=== PATIENT | male | born 1985 | race Caucasian/White ===

== ENCOUNTER 2017-09-30 12:34 | Emergency (ER) | payer SELFPAY ==
[~2017-09-30] VITALS: Ht 170.2 cm; Wt 65.8 kg
[~2017-09-30 12:34] MED LIST: SULF1TAB38 PO
--- OUTSIDE RECORDS SUMMARY | 2017-09-30 12:40 | XMS REPORT ---
Author Author INDIGO SALAZAR eClinicalWorks Address Unknown Phone Unavailable Care Team Providers Care Planting Machine Crewman Name Role Phone INDIGO SALAZAR CP Unavailable Allergies, Adverse Reactions, Alerts Substance Reaction Event Type N.K.D.A. 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 Assessment Dental caries K02.9 Active Medications Medication Code System Code Instructions Start Date End Date Status Dosage buspirone NDC 0 10 mg oral 2 times a day March 11, 2013 Oct 07, 2015 take 1 tablet Acyclovir [facility] [address]-15 400 MG Orally Sep 07, 2015 1 tablet tid x 5 days, then po bid Ibuprofen [facility] [address]-60 800 MG Orally every 6 hrs Sep 14, 2015Sep 1 tablet Procedures Procedure Coding System Code Date INTRAORL-PERIAPICAL 1 FILM 01941 CPT-4 D0220 Sep 14, 2015 INTRAORL-PERIAPICAL 1 FILM 21790 CPT-4 D0220 Sep 14, 2015 LTD ORAL EVALUATION - PROBLEM FOCUS CPT-4 D0140 Sep 14, 2015 EXTRAC ERUPTED TOOTH/EXPOSED ROOT CPT-4 D7140 Sep 14, 2015 EXTRAC ERUPTED TOOTH/EXPOSED ROOT CPT-4 D7140 Sep 14, 2015 Vital Signs Date/Time: Sep 14, 2015 Blood Pressure Diastolic 74 mmHg Blood Pressure Systolic 110 mmHg Height 67 in Results No Known Results Summary Purpose eClinicalWorks Submission
--- OUTSIDE RECORDS SUMMARY | 2017-09-30 12:41 | XMS REPORT ---
Author Author MAY LANDIS [facility] eClinicalWorks Address Unknown Phone Unavailable Care Team Providers Care Spring Repairer Helper Hand Name Role Phone MAY LANDIS Unavailable Allergies No Known Allergies Problems Problem Type Condition Code Onset Dates Condition Status Problem Polysubstance abuse F19.10 Active Assessment Chronic hepatitis C without hepatic coma B18.2 Active Problem Chronic hepatitis C without hepatic coma B18.2 Active Medications No Known Medications Results No Known Results Summary Purpose eClinicalWorks Submission
--- OUTSIDE RECORDS SUMMARY | 2017-09-30 12:41 | XMS REPORT ---
Author Author MAY LANDIS [facility] eClinicalWorks Address Unknown Phone Unavailable Care Team Providers Care Boiler Fitter Name Role Phone MAY LANDIS CP Unavailable Allergies No Known Allergies Problems Problem Type Condition Code Onset Dates Condition Status Problem Polysubstance abuse F19.10 Active Assessment Chronic hepatitis C without hepatic coma B18.2 Active Problem Chronic hepatitis C without hepatic coma B18.2 Active Medications No Known Medications Procedures Procedure Coding System Code Date HEP B SURFACE ANTIBODY CPT-4 42425 Oct 18, 2015 COMPLETE CBC W/AUTO DIFF WBC CPT-4 36559 Oct 18, 2015 THROMBOPLASTIN TIME, PARTIAL CPT-4 27464 Oct 18, 2015 COMPREHEN METABOLIC PANEL CPT-4 19311 Oct 18, 2015 PROTHROMBIN TIME CPT-4 13921 Oct 18, 2015 VENIPUNCT, ROUTINE* CPT-4 84944 Oct 18, 2015 No Charge CPT-4 69276 Oct 18, 2015 Results Name Result Date Reference Range Unit Abnormality Flag ROUTINE VENIPUNCTURE Summary Purpose eClinicalWorks Submission
--- OUTSIDE RECORDS SUMMARY | 2017-09-30 12:41 | XMS REPORT ---
Author Author MAY LANDIS [facility] eClinicalWorks Address Unknown Phone Unavailable Care Team Providers Care Cartridge Assembler Name Role Phone MAY LANDIS Unavailable Allergies No Known Allergies Problems Problem Type Condition Code Onset Dates Condition Status Problem Polysubstance abuse F19.10 Active Assessment Chronic hepatitis C without hepatic coma B18.2 Active Problem Chronic hepatitis C without hepatic coma B18.2 Active Medications No Known Medications Results No Known Results Summary Purpose eClinicalWorks Submission
--- OUTSIDE RECORDS SUMMARY | 2017-09-30 12:41 | XMS REPORT ---
Author Author INDIGO SALAZAR e[employer] Address Unknown Phone Unavailable Care Team Providers Care Quality Management Nurse Name Role Phone INDIGO SALAZAR CP Unavailable Allergies, Adverse Reactions, Alerts Substance Reaction Event Type N.K.D.A. 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 Medications Medication Code System Code Instructions Start Date End Date Status Dosage buspirone NDC 0 10 mg oral 2 times a day March 11, 2013 Oct 07, 2015 take 1 tablet Gabapentin NDC 0 not defined Acyclovir [facility] [address]-72 400 MG Orally Sep 07, 2015 1 tablet tid x 5 days, then po bid Procedures Procedure Coding System Code Date LTD ORAL EVALUATION - PROBLEM FOCUS CPT-4 D0140 Sep 21, 2015 Vital Signs Date/Time: Sep 21, 2015 Blood Pressure Diastolic 62 mmHg Blood Pressure Systolic 109 mmHg Height 67 in Results No Known Results Summary Purpose eClinicalWorks Submission
--- OUTSIDE RECORDS SUMMARY | 2017-09-30 12:41 | XMS REPORT ---
Author Author MAY LANDIS [facility] eClinicalWorks Address Unknown Phone Unavailable Care Team Providers Care Helper Animal Laboratory Name Role Phone MAY LANDIS Unavailable Allergies No Known Allergies Problems Problem Type Condition Code Onset Dates Condition Status Problem Polysubstance abuse F19.10 Active Problem Chronic hepatitis C without hepatic coma B18.2 Active Medications No Known Medications Results No Known Results Summary Purpose eClinicalWorks Submission
--- OUTSIDE RECORDS SUMMARY | 2017-09-30 12:41 | XMS REPORT ---
Author Author RAVI LIMA Organization eClinicalWorks Address Unknown Phone Unavailable Care Team Providers Care Water Inspector Name Role Phone RAVI LIMA CP Unavailable Allergies, Adverse Reactions, Alerts Substance Reaction Event Type N.K.D.A. 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 Assessment Dental caries K02.9 Active Medications Medication Code System Code Instructions Start Date End Date Status Dosage Amoxicillin [facility] [address]-00 500 MG Orally Every 6 hours Jul 05, 2015 Jul 15, 2015 1 capsule [place] [facility] [address]-58 5-325 MG Orally every 6 hrs Jul 05, 2015 Jul 09, 2015 1 tablet as needed Procedures Procedure Coding System Code Date INTRAORL-PERIAPICAL EA ADD FILM CPT-4 D0230 Jul 05, 2015 EXTRAC ERUPTED TOOTH/EXPOSED ROOT CPT-4 D7140 Jul 05, 2015 LTD ORAL EVALUATION - PROBLEM FOCUS CPT-4 D0140 Jul 05, 2015 EXTRAC ERUPTED TOOTH/EXPOSED ROOT CPT-4 D7140 Jul 05, 2015 Vital Signs Date/Time: Jul 05, 2015 Blood Pressure Diastolic 80 mmHg Blood Pressure Systolic 124 mmHg Results No Known Results Summary Purpose eClinicalWorks Submission
--- OUTSIDE RECORDS SUMMARY | 2017-09-30 12:41 | XMS REPORT ---
Author Author MAY LANDIS eClinicalWorks Address Unknown Phone Unavailable Care Team Providers Care Pulping Machine Operator Name Role Phone MAY LANDIS CP Unavailable Allergies, Adverse Reactions, Alerts Substance Reaction Event Type N.K.D.A. Info Not Available Non Drug Allergy Problems Problem Type Condition Code Onset Dates Condition Status Problem Polysubstance abuse F19.10 Active Assessment Chronic hepatitis C without hepatic coma B18.2 Active Problem Chronic hepatitis C without hepatic coma B18.2 Active Medications Medication Code System Code Instructions Start Date End Date Status Dosage Gabapentin [place] [address]-84 300 MG Orally 4 times a day 1 tablet buspirone NDC 0 10 mg oral two times a day & 2 tablets at bedtime March 11, 2013 Oct 07, 2015 take 1 tablet Procedures Procedure Coding System Code Date Office Visit, New Pt., Level 3 CPT-4 46858 Sep 30, 2015 DRUG SCREEN NON TLC DEVICES CPT-4 47658 Sep 30, 2015 Vital Signs Date/Time: Sep 30, 2015 Temperature 98.5 F Weight 143.9 lbs Height 67 in BMI 22.54 Index Blood Pressure Diastolic 68 mmHg Blood Pressure Systolic 126 mmHg Cardiac Monitoring Heart Rate 76 bpm Results Name Result Date Reference Range Unit Abnormality Flag URINE DRUG SCREEN (IN HOUSE) ----MDMA negative 20150930 ----TCA negative 20150930 ----BENZO negative 20150930 ----OPIATE negative 20150930 ----THC Positive 20150930 ----MTD negative 20150930 ----AMPH negative 20150930 ----BAR negative 20150930 ----PCP negative 20150930 ----MAMP negative 20150930 ----OXY negative 20150930 ----Lot # [id number] ----Exp date [id number] ----Control + 20150930 ----COCAINE negative 20150930 Summary Purpose eClinicalWorks Submission
--- OUTSIDE RECORDS SUMMARY | 2017-09-30 12:41 | XMS REPORT ---
Author Author CAROL ANN BLAKE [facility] eClinicalWorks Address Unknown Phone Unavailable Care Team Providers Care Casting Machine Adjuster Name Role Phone CAROL ANN BLAKE CP Unavailable Allergies, Adverse Reactions, Alerts Substance Reaction Event Type N.K.D.A. 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 Assessment Anxiety F41.9 Active Medications Medication Code System Code Instructions Start Date End Date Status Dosage Acyclovir NDC [address]-22 400 MG Orally Sep 07, 2015 1 tablet tid x 5 days, then po bid buspirone NDC 0 10 mg oral 2 times a day March 11, 2013 Oct 07, 2015 take 1 tablet Procedures Procedure Coding System Code Date Office Visit, Est Pt., Level 3 CPT-4 09786 Sep 07, 2015 Vital Signs Date/Time: Sep 07, 2015 Temperature 98.7 F Weight 131 lbs Height 67 in BMI 20.52 Index Blood Pressure Diastolic 68 mmHg Blood Pressure Systolic 122 mmHg Cardiac Monitoring Heart Rate 80 bpm Results No Known Results Summary Purpose eClinicalWorks Submission
[2017-09-30 16:32] LABS: BILIRUBIN,URINE NEGATIVE (NEGATIVE); CLARITY,URINE CLEAR; COLOR,URINE YELLOW; GLUCOSE, URINE (UA) NEGATIVE (NEGATIVE); KETONES,URINE NEGATIVE (NEGATIVE); LEUKOCYTE ESTERASE ,URINE NEGATIVE (NEGATIVE); NITRITE,URINE NEGATIVE (NEGATIVE); PH,URINE 7 (5-9); PROTEIN,URINE NEGATIVE (NEGATIVE); UROBILINOGEN,URINE NORMAL (NORMAL)
[2017-09-30 16:39] LABS: BACTERIA,URINE NEGATIVE /HPF
[2017-09-30 16:43] LABS: BASOPHILS # (AUTO) 0.1 10^3/uL (0.0-0.1); BASOPHILS % (AUTO) 1 % (0-10); EOSINOPHILS # (AUTO) 0.1 10^3/uL (0.0-0.3); EOSINOPHILS % (AUTO) 2 % (0-10); HEMATOCRIT 49 % (40-54); LYMPHOCYTES # (AUTO) 1.1 X 10^3 (1.0-4.0); LYMPHOCYTES % (AUTO) 14 % (12-44); MEAN CORPUSCULAR HEMOGLOBIN 31 PG (25-34); MEAN CORPUSCULAR HGB CONC 35 G/DL (32-36); MEAN CORPUSCULAR VOLUME 89 FL (80-99); MEAN PLATELET VOLUME 10.4 FL (7.4-10.4); MONOCYTES # (AUTO) 1.6 X 10^3 (0.0-1.0); MONOCYTES % (AUTO) 20 % (0-12); NEUTROPHILS # (AUTO) 5.2 X 10^3 (1.8-7.8); NEUTROPHILS % (AUTO) 64 % (42-75); PLATELET COUNT 150 10^3/uL (130-400); RED BLOOD COUNT 5.48 10^6/uL (4.35-5.85); RED CELL DISTRIBUTION WIDTH 13.1 % (10.0-14.5); WHITE BLOOD COUNT 8.1 10^3/uL (4.3-11.0)
[2017-09-30 16:46] LABS: AMPHETAMINE SCREEN, URINE NEGATIVE (NEGATIVE); BARBITURATE SCREEN URINE NEGATIVE (NEGATIVE); BENZODIAZEPINES SCREEN URINE POSITIVE (NEGATIVE); CANNABINOID SCREEN, URINE POSITIVE (NEGATIVE); COCAINE SCREEN URINE NEGATIVE (NEGATIVE); METHADONE STAT NEGATIVE (NEGATIVE); METHAMPHETAMINE SCREEN URINE S NEGATIVE (NEGATIVE); OPIATE SCREEN URINE NEGATIVE (NEGATIVE); OXYCODONE STAT NEGATIVE (NEGATIVE); PROPOXYPHENE STAT NEGATIVE (NEGATIVE); TRICYCLIC ANTIDEPRESSANTS SCRE NEGATIVE (NEGATIVE)
[2017-09-30 16:57] LABS: BASOPHILS % (MANUAL) 1 %; EOSINOPHILS % (MANUAL) 4 %; LYMPHOCYTES % (MANUAL) 10 %; MONOCYTES % (MANUAL) 26 %; NEUTROPHILS % (MANUAL) 59 %; SPHEROCYTES MODERATE
[2017-09-30 17:03] LABS: ALANINE AMINOTRANSFERASE 145 U/L (0-55); ALBUMIN 4.3 GM/DL (3.2-4.5); ALKALINE PHOSPHATASE 47 U/L (40-136); BILIRUBIN,TOTAL 0.5 MG/DL (0.1-1.0); BUN/CREATININE RATIO 13; CALCIUM 9.1 MG/DL (8.5-10.1); CARBON DIOXIDE 26 MMOL/L (21-32); CHLORIDE 103 MMOL/L (98-107); CREATININE SERUM 0.95 MG/DL (0.60-1.30); GFR ESTIMATED > 60; GLUCOSE 86 MG/DL (70-105); LIPASE 36 U/L (8-78); POTASSIUM 4.1 MMOL/L (3.6-5.0); SODIUM 139 MMOL/L (135-145); TOTAL PROTEIN 7.1 GM/DL (6.4-8.2)
--- NOTE | 2017-09-30 17:13 | ED General ---
General Chief Complaint: General Problems/Pain Stated Complaint: FEVER/BILAT LEG PAIN/BACK PAIN Nursing Triage Note: PT HERE WITH C/O FEVER AND NOT FEELING WELL. PT REPORTS HAVING COMPLICATIONS WITH HIS HEP C. REPORTS PAIN ALL OVER. Nursing Sepsis Screen: No Definite Risk Source of Information: Patient, Spouse Exam Limitations: No Limitations History of Present Illness Time Seen by Provider: 17:12 Allergies and Home Medications Allergies Coded Allergies: No Known Drug Allergies (Unverified , 02/15/11) Past Twnaajp-[id number]-Fvivrg Hx Patient Social History Recent Foreign Travel: No Contact w/Someone Who Travel: No Recent Infectious Disease Expo: No Reproductive System Hx Reproductive Disorders: No Physical Exam Vital Signs Vital Sign - Last 12Hours 09/30/17 14:22 Temp 98.0 Pulse 98 Resp 16 B/P (MAP) 127/62 (83) Pulse Ox 99 O2 Delivery Room Air Capillary Refill : Less Than 3 Seconds Progress/Results/Core Measures Suspected Sepsis Recent Fever Within 48 Hours: Yes Infection Criteria Present: None New/Unexplained Altered Menta: No Sepsis Screen: No Definite Risk Sepsis Diagnosis: SIRS Temperature:98.0 Pulse: 98 Respiratory Rate: 16 Laboratory Tests 09/30/17 16:30: White Blood Count 8.1 Blood Pressure 127 /62 Mean: 83 Laboratory Tests 09/30/17 16:30: Creatinine 0.95, Platelet Count 150, Total Bilirubin 0.5 Results/Orders Lab Results Laboratory Tests Test 09/30/17 16:25 09/30/17 16:30 Range/Units Urine Color YELLOW Urine Clarity CLEAR Urine pH 7 5-9 Urine Specific [place] 1.010 L 1.016-1.022 Urine Protein NEGATIVE NEGATIVE Urine Glucose (UA) NEGATIVE NEGATIVE Urine Ketones NEGATIVE NEGATIVE Urine Nitrite NEGATIVE NEGATIVE Urine Bilirubin NEGATIVE NEGATIVE Urine Urobilinogen NORMAL NORMAL MG/DL Urine Leukocyte Esterase NEGATIVE NEGATIVE Urine RBC (Auto) 2+ H NEGATIVE Urine RBC NONE /HPF Urine WBC NONE /HPF Urine Crystals NONE /LPF Urine Bacteria NEGATIVE /HPF Urine Casts NONE /LPF Urine Mucus NEGATIVE /LPF Urine Culture Indicated NO Urine Opiates Screen NEGATIVE NEGATIVE Urine Oxycodone Screen NEGATIVE NEGATIVE Urine Methadone Screen NEGATIVE NEGATIVE Urine Propoxyphene Screen NEGATIVE NEGATIVE Urine Barbiturates Screen NEGATIVE NEGATIVE Ur Tricyclic Antidepressants Screen NEGATIVE NEGATIVE Urine Phencyclidine Screen NEGATIVE NEGATIVE Urine Amphetamines Screen NEGATIVE NEGATIVE Urine Methamphetamines Screen NEGATIVE NEGATIVE Urine Benzodiazepines Screen POSITIVE H NEGATIVE Urine Cocaine Screen NEGATIVE NEGATIVE Urine Cannabinoids Screen POSITIVE H NEGATIVE White Blood Count 8.1 4.3-11.0 10^3/uL Red Blood Count 5.48 4.35-5.85 10^6/uL Hemoglobin 17.0 13.3-17.7 G/DL Hematocrit 49 40-54 % Mean Corpuscular Volume 89 80-99 FL Mean Corpuscular Hemoglobin 31 25-34 PG Mean Corpuscular Hemoglobin Concent 35 32-36 G/DL Red Cell Distribution Width 13.1 10.0-14.5 % Platelet Count 150 130-400 10^3/uL Mean Platelet Volume 10.4 7.4-10.4 FL Neutrophils (%) (Auto) 64 42-75 % Lymphocytes (%) (Auto) 14 12-44 % Monocytes (%) (Auto) 20 H 0-12 % Eosinophils (%) (Auto) 2 0-10 % Basophils (%) (Auto) 1 0-10 % Neutrophils # (Auto) 5.2 1.8-7.8 X 10^3 Lymphocytes # (Auto) 1.1 1.0-4.0 X 10^3 Monocytes # (Auto) 1.6 H 0.0-1.0 X 10^3 Eosinophils # (Auto) 0.1 0.0-0.3 10^3/uL Basophils # (Auto) 0.1 0.0-0.1 10^3/uL Neutrophils % (Manual) 59 % Lymphocytes % (Manual) 10 % Monocytes % (Manual) 26 % Eosinophils % (Manual) 4 % Basophils % (Manual) 1 % Spherocytes MODERATE Sodium Level 139 135-145 MMOL/L Potassium Level 4.1 3.6-5.0 MMOL/L Chloride Level 103 98-107 MMOL/L Carbon Dioxide Level 26 21-32 MMOL/L Anion Gap 10 5-14 MMOL/L Blood Urea Nitrogen 12 7-18 MG/DL Creatinine 0.95 0.60-1.30 MG/DL Estimat Glomerular Filtration Rate > 60 BUN/Creatinine Ratio 13 Glucose Level 86 70-105 MG/DL Calcium Level 9.1 8.5-10.1 MG/DL Total Bilirubin 0.5 0.1-1.0 MG/DL Aspartate Amino Transf (AST/SGOT) 69 H 5-34 U/L Alanine Aminotransferase (ALT/SGPT) 145 H 0-55 U/L Alkaline Phosphatase 47 40-136 U/L Total Protein 7.1 6.4-8.2 GM/DL Albumin 4.3 3.2-4.5 GM/DL Lipase 36 8-78 U/L Serum Alcohol < 10 <10 MG/DL My Orders Orders - PÉREZ NICOLAS Saline Lock/Iv-Start (09/30/17 15:53) Alcohol (09/30/17 15:53) Cbc With Automated Diff (09/30/17 15:53) Comprehensive Metabolic Panel (09/30/17 15:53) Drug Screen Stat (Urine) (09/30/17 15:53) Lipase (09/30/17 15:53) Ua Culture If Indicated (09/30/17 15:53) Manual Differential (09/30/17 16:30) Rx-Oseltamivir Caps (Rx-Tamiflu Caps) (09/30/17 17:43) Vital Signs/I&O Vital Sign - Last 12Hours 09/30/17 14:22 Temp 98.0 Pulse 98 Resp 16 B/P (MAP) 127/62 (83) Pulse Ox 99 O2 Delivery Room Air Capillary Refill : Less Than 3 Seconds Blood Pressure Mean: 83 Departure Impression Impression: Primary Impression: Influenza Additional Impression: H/O chronic hepatitis Disposition: 01 HOME, SELF-CARE Condition: Improved Departure-Patient Inst. Decision time for Depature: 17:44 Referrals: NO,LOCAL PHYSICIAN (PCP/Family) Primary Care Physician Patient Instructions: Flu, Adult (DC), Hepatitis C (DC) Add. Discharge Instructions: All discharge instructions reviewed with patient and/or family. Voiced understanding. Medications as instructed. Ibuprofen 800 mg by mouth every 8 hours as needed OR naprosyn over the counter for pain or fever. Push fluids. Saline nasal spray and Afrin nasal spray [id number] as needed for nasal congestion. Cool humidifier. Follow-up with your primary care provider of choice for recheck as an outpatient and to establish care. Return to the emergency department for worsened symptoms or any other concerns. Scripts Ondansetron (Ondansetron Odt) 8 Mg Tab.rapdis 8 MG PO Q6H Y for NAUSEA/VOMITING-1ST LINE, #10 TAB 0 Refills Prov: PÉREZ NICOLAS 09/30/17 Work/School Note: Local [employer] PÉREZ NICOLAS Sep 30, 2017 17:12
[2017-09-30] MEDS ORDERED: RX-OSELTAMIVIR 75 MG (TAMIFLU) BOX OF 10 PO STA (17:43)
[2017-09-30] MEDS ORDERED: ONDA8TAB13 PO (17:46)
[2017-09-30 18:14] VITALS: BP 128/84
== END 2017-09-30 18:14 | disposition home or self-care (01) ==
LOC: EDUNIT# 12:34 → ER 12:37
DX: J11.1 Influenza due to unidentified influenza virus with other respiratory manifestations (principal); Z87.19 Personal history of other diseases of the digestive system
CPT/HCPCS: 36415; 80053; 80306; 80320; 81000; 83690; 85007; 85027

== ENCOUNTER 2018-01-01 23:04 | Emergency (ER) | payer SELFPAY ==
[~2018-01-01] VITALS: Ht 170.2 cm; Wt 63.5 kg
[~2018-01-01 23:04] MED LIST changes: +ONDA8TAB13 PO
[2018-01-01] MEDS ORDERED: LACTATED RINGERS 1,000 ML IV ONE (23:36)
[2018-01-01 23:49] LABS: BASOPHILS # (AUTO) 0.1 10^3/uL (0.0-0.1); BASOPHILS % (AUTO) 1 % (0-10); EOSINOPHILS # (AUTO) 0.5 10^3/uL (0.0-0.3); EOSINOPHILS % (AUTO) 4 % (0-10); HEMATOCRIT 47 % (40-54); HEMOGLOBIN 16.7 G/DL (13.3-17.7); LYMPHOCYTES # (AUTO) 2.6 X 10^3 (1.0-4.0); LYMPHOCYTES % (AUTO) 19 % (12-44); MEAN CORPUSCULAR HEMOGLOBIN 31 PG (25-34); MEAN CORPUSCULAR HGB CONC 35 G/DL (32-36); MEAN CORPUSCULAR VOLUME 88 FL (80-99); MONOCYTES # (AUTO) 1.3 X 10^3 (0.0-1.0); MONOCYTES % (AUTO) 9 % (0-12); NEUTROPHILS # (AUTO) 9.4 X 10^3 (1.8-7.8); NEUTROPHILS % (AUTO) 68 % (42-75); PLATELET COUNT 208 10^3/uL (130-400); RED CELL DISTRIBUTION WIDTH 13.6 % (10.0-14.5); WHITE BLOOD COUNT 13.9 10^3/uL (4.3-11.0)
[2018-01-01 23:50] LABS: BILIRUBIN,URINE NEGATIVE (NEGATIVE); CLARITY,URINE CLEAR; GLUCOSE, URINE (UA) NEGATIVE (NEGATIVE); KETONES,URINE NEGATIVE (NEGATIVE); LEUKOCYTE ESTERASE ,URINE 1+ (NEGATIVE); NITRITE,URINE NEGATIVE (NEGATIVE); PH,URINE 6 (5-9); PROTEIN,URINE 2+ (NEGATIVE); UROBILINOGEN,URINE 4 MG/DL (NORMAL)
[2018-01-01 23:54] LABS: COLOR,URINE DARK YELLOW
[2018-01-01 23:56] LABS: BACTERIA,URINE NEGATIVE /HPF; RBC,URINE 0-2 /HPF; SQUAMOUS EPITHELIAL CELL,UR RARE /HPF; WBC,URINE RARE /HPF
[2018-01-02 00:08] LABS: ALANINE AMINOTRANSFERASE 48 U/L (0-55); ALBUMIN 4.7 GM/DL (3.2-4.5); ALKALINE PHOSPHATASE 39 U/L (40-136); AMYLASE 43 U/L (25-125); BILIRUBIN,TOTAL 0.6 MG/DL (0.1-1.0); BUN/CREATININE RATIO 16; CALCIUM 9.3 MG/DL (8.5-10.1); CARBON DIOXIDE 26 MMOL/L (21-32); CHLORIDE 102 MMOL/L (98-107); CREATININE SERUM 1.07 MG/DL (0.60-1.30); GFR ESTIMATED > 60; GLUCOSE 163 MG/DL (70-105); LIPASE 26 U/L (8-78); POTASSIUM 3.6 MMOL/L (3.6-5.0); SODIUM 139 MMOL/L (135-145); TOTAL PROTEIN 7.6 GM/DL (6.4-8.2)
[2018-01-02] MEDS ORDERED: RX-TRAMADOL 50 MG (ULTRAM) TAB PPK#4 PO STA (00:33)
[2018-01-02] MEDS ORDERED: RX-ONDANSETRON 4 MG ODT (ZOFRAN) PPK #4 PO STA (00:33)
[2018-01-02] MEDS ORDERED: ONDA4TAB8 PO (00:37)
[2018-01-02] MEDS ORDERED: KETO10TA PO (00:37)
[2018-01-02] MEDS ORDERED: LEVO500T2 PO (00:37)
[2018-01-02] MEDS ORDERED: TAMS0.4C98 PO (00:37)
[2018-01-02] MEDS ORDERED: HYDR30CR71 RC (00:38)
--- NOTE | 2018-01-02 00:38 | ED Abdominal Pain ---
General Chief Complaint: Abdominal/GI Problems Stated Complaint: ABD PAIN Nursing Triage Note: PT PRESENTS TO ER WITH COMPLAINT OF ABD. STATES HE FEELS LIKE HE HAS TO POOP, BUT IS UNABLE. STATES IT FEELS LIKE HE HAS A HEMRRHOID INSIDE. STATES HE HAD A BOWEL MOVEMENT TODAY. Sepsis Screen: No Definite Risk Source of Information: Patient History of Present Illness Date Seen by Provider: Jan 01, 2018 Time Seen by Provider: 23:25 Initial Comments PT ARRIVES VIA POV FROM HOME STATES HE HAD SEVERE PAIN IN LLQ , RADIATING TO LEFT FLANK--PAIN BEGAN AROUND 2230, AND LASTED FOR APPROXIMATELY AN HOUR PAIN IS MOSTLY GONE NOW, EXCEPT FOR OCCASIONAL DULL ACHE STATES PAIN WAS THE WORST PAIN HE HAS EVER EXPERIENCED AND IT WAS SO BAD, HE BROKE OUT IN A SWEAT, GOT DIZZY, AND FELT LIKE HE WAS GOING TO PASS OUT FROM THE PAIN NO NAUSEA/VOMITING NO FEVER NO URINARY SYMPTOMS HAD BM AT 1500--CONSTIPATED, NORMALLY HAS 6 BM'S A DAY ALSO C/O ONGOING PAIN WITH HEMORRHOIDS, HAS NOT SOUGHT CARE, AND NO RECTAL BLEEDING PCP: MARCIO-JOSIE Allergies and Home Medications Allergies Coded Allergies: No Known Drug Allergies (Unverified , 02/15/11) Home Medications Hydrocortisone 30 Gm Cream..g., 30 GM RC TID Prescribed by: LEXIS PLASCENCIA on 01/02/1837 Ketorolac Tromethamine 10 Mg Tablet, 10 MG PO Q6H Prescribed by: LEXIS PLASCENCIA on 01/02/1836 Levofloxacin 500 Mg Tablet, 500 MG PO DAILY Prescribed by: LEXIS PLASCENCIA on 01/02/1836 Ondansetron 8 Mg Tab.rapdis, 8 MG PO Q6H PRN for NAUSEA/VOMITING-1ST LINE Prescribed by: PÉREZ NICOLAS on 09/30/17 1746 Ondansetron 4 Mg Tab.rapdis, 4 MG PO Q4H Prescribed by: LEXIS PLASCENCIA on 01/02/1836 Tamsulosin HCl 0.4 Mg Cap, 0.4 MG PO DAILY Prescribed by: LEXIS PLASCENCIA on 01/02/1836 Patient Home Medication List Home Medication List Reviewed: Yes Review of Systems Constitutional: see HPI, dizziness Respiratory: No Symptoms Reported Cardiovascular: No Symptoms Reported Gastrointestinal: See HPI, Constipated; Denies Nausea, Denies Vomiting Genitourinary: No Symptoms Reported Musculoskeletal: see HPI Skin: no symptoms reported Psychiatric/Neurological: See HPI, Anxiety Endocrine: No Symptoms Reported Hematologic/Lymphatic: No Symptoms Reported Past Lfadmzg-Ewmcca-Gveffn Hx Patient Social History Alcohol Use: Regular Use Recreational Drug Use: Yes ("EVERYTHING YOU CAN THINK OF" --MOSTLY IV HEROIN AND METH, PLUS THC DAILY. HAS OVERDOSED X 1-ONCE ON HEROIN, ONCE ON HEROIN + METH) Drug of Choice: DAILY THC, +IV HEROIN AND METH, "AND EVERYTHING ELSE YOU CAN THINK OF" Smoking Status: Current Everyday Smoker (1 PPD) Type Used: Cigarettes Recent Foreign Travel: No Contact w/Someone Who Travel: No Recent Infectious Disease Expo: No Recent Hopitalizations: No Past Medical History Surgeries: No Respiratory: No Cardiac: No Neurological: No Reproductive Disorders: No Genitourinary: Yes Kidney Stones Gastrointestinal: Yes (HEPATITIS C --NO TREATMENT) Hepatitis Musculoskeletal: No Endocrine: No HEENT: No Cancer: No Psychosocial: Yes (OVERDOSED ON HEROIN X 1, HEROIN + METH X 1) Sleep Difficulties, Depression Blood Disorders: No Family Medical History No Pertinent Family Hx Physical Exam Vital Signs Vital Signs - First Documented 01/01/18 23:09 Temp 97.0 Pulse 91 Resp 20 B/P (MAP) 162/84 (110) Pulse Ox 98 O2 Delivery Room Air Capillary Refill : Less Than 3 Seconds General Appearance: WD/WN, no apparent distress, other (TALKS NON-STOP. DOES NOT APPEAR TO BE IN ANY DISCOMFORT OR DISTRESS, WALKS UPRIGHT AND MOVES QUICKLY WITHOUT DIFFICULTY. ) Respiratory: normal breath sounds, no respiratory distress, no accessory muscle use Cardiovascular: regular rate, rhythm, no murmur Gastrointestinal: normal bowel sounds, soft, no organomegaly, no pulsatile mass ; No distended, No guarding, No rebound; tenderness (MILD LLQ TENDERNESS); No hernia, No mass Back: normal inspection, no CVA tenderness Neurologic/Psychiatric: clinical research spec II-XII nml as tested, no motor/sensory deficits, alert, normal mood/affect, oriented x 3 Skin: normal color, warm/dry, tattoos/piercings (EXTENSIVE TATTOOS) Progress/Results/Core Measures Lab Results Laboratory Tests Test 01/01/18 23:40 Range/Units White Blood Count 13.9 H 4.3-11.0 10^3/uL Red Blood Count 5.40 4.35-5.85 10^6/uL Hemoglobin 16.7 13.3-17.7 G/DL Hematocrit 47 40-54 % Mean Corpuscular Volume 88 80-99 FL Mean Corpuscular Hemoglobin 31 25-34 PG Mean Corpuscular Hemoglobin Concent 35 32-36 G/DL Red Cell Distribution Width 13.6 10.0-14.5 % Platelet Count 208 130-400 10^3/uL Mean Platelet Volume 10.0 7.4-10.4 FL Neutrophils (%) (Auto) 68 42-75 % Lymphocytes (%) (Auto) 19 12-44 % Monocytes (%) (Auto) 9 0-12 % Eosinophils (%) (Auto) 4 0-10 % Basophils (%) (Auto) 1 0-10 % Neutrophils # (Auto) 9.4 H 1.8-7.8 X 10^3 Lymphocytes # (Auto) 2.6 1.0-4.0 X 10^3 Monocytes # (Auto) 1.3 H 0.0-1.0 X 10^3 Eosinophils # (Auto) 0.5 H 0.0-0.3 10^3/uL Basophils # (Auto) 0.1 0.0-0.1 10^3/uL Urine Color DARK YELLOW Urine Clarity CLEAR Urine pH 6 5-9 Urine Specific [place] 1.025 H 1.016-1.022 Urine Protein 2+ H NEGATIVE Urine Glucose (UA) NEGATIVE NEGATIVE Urine Ketones NEGATIVE NEGATIVE Urine Nitrite NEGATIVE NEGATIVE Urine Bilirubin NEGATIVE NEGATIVE Urine Urobilinogen 4 H NORMAL MG/DL Urine Leukocyte Esterase 1+ H NEGATIVE Urine RBC (Auto) 5+ H NEGATIVE Urine RBC 0-2 /HPF Urine WBC RARE /HPF Urine Squamous Epithelial Cells RARE /HPF Urine Crystals NONE /LPF Urine Bacteria NEGATIVE /HPF Urine Casts NONE /LPF Urine Mucus MODERATE H /LPF Urine Culture Indicated NO Sodium Level 139 135-145 MMOL/L Potassium Level 3.6 3.6-5.0 MMOL/L Chloride Level 102 98-107 MMOL/L Carbon Dioxide Level 26 21-32 MMOL/L Anion Gap 11 5-14 MMOL/L Blood Urea Nitrogen 17 7-18 MG/DL Creatinine 1.07 0.60-1.30 MG/DL Estimat Glomerular Filtration Rate > 60 BUN/Creatinine Ratio 16 Glucose Level 163 H 70-105 MG/DL Calcium Level 9.3 8.5-10.1 MG/DL Total Bilirubin 0.6 0.1-1.0 MG/DL Aspartate Amino Transf (AST/SGOT) 27 5-34 U/L Alanine Aminotransferase (ALT/SGPT) 48 0-55 U/L Alkaline Phosphatase 39 L 40-136 U/L Total Protein 7.6 6.4-8.2 GM/DL Albumin 4.7 H 3.2-4.5 GM/DL Amylase Level 43 25-125 U/L Lipase 26 8-78 U/L Urine Opiates Screen NEGATIVE NEGATIVE Urine Oxycodone Screen NEGATIVE NEGATIVE Urine Methadone Screen NEGATIVE NEGATIVE Urine Propoxyphene Screen NEGATIVE NEGATIVE Urine Barbiturates Screen NEGATIVE NEGATIVE Ur Tricyclic Antidepressants Screen NEGATIVE NEGATIVE Urine Phencyclidine Screen NEGATIVE NEGATIVE Urine Amphetamines Screen NEGATIVE NEGATIVE Urine Methamphetamines Screen NEGATIVE NEGATIVE Urine Benzodiazepines Screen NEGATIVE NEGATIVE Urine Cocaine Screen NEGATIVE NEGATIVE Urine Cannabinoids Screen POSITIVE H NEGATIVE My Orders Orders - LEXIS PLASCENCIA DO Ct Abd/Pelvis Wo(Kidney Stone) (01/01/18 23:36) Amylase (01/01/18 23:36) Cbc With Automated Diff (01/01/18 23:36) Comprehensive Metabolic Panel (01/01/18 23:36) Lipase (01/01/18 23:36) Ua Culture If Indicated (01/01/18 23:36) Saline Lock/Iv-Start (01/01/18 23:36) Saline Lock/Iv-Start (01/01/18 23:36) Lactated Ringers (Lr 1000 Ml Iv Solution (01/01/18 23:36) Acute Abd Series (01/02/18 00:01) Rx-Tramadol Hcl (Rx-Ultram) (01/02/18 00:33) Rx-Ondansetron Po (Rx-Zofran Po) (01/02/18 00:33) Ketorolac Injection (Toradol Injection) (01/02/18 00:45) Alfuzosin (Not Stocked) (Uroxatral (Not (01/02/18 00:45) Levofloxacin Tablet (Levaquin Tablet) (01/02/18 00:45) Drug Screen Stat (Urine) (01/02/18 01:26) Medications Given in ED Current Medications Medications Dose Ordered Sig/Braulio Route Start Time Stop Time Status Last Admin Dose Admin Ketorolac Tromethamine 30 mg ONCE ONCE IVP 01/02/18 00:45 01/02/18 00:46 DC 01/02/18 01:19 30 MG Lactated Ringer's 1,000 ml @ 0 mls/hr Q0M ONCE IV 01/01/18 23:36 01/01/18 23:37 DC 01/01/18 23:47 1,000 MLS/HR Levofloxacin 500 mg ONCE ONCE PO 01/02/18 00:45 01/02/18 00:46 DC 01/02/18 01:19 500 MG Vital Signs/I&O 01/01/18 01/02/18 23:09 01:25 Temp 97.0 97.0 Pulse 91 91 Resp 20 20 B/P (MAP) 162/84 (110) 150/80 (110) Pulse Ox 98 98 O2 Delivery Room Air Blood Pressure Mean: 110 Progress Note : Progress Note PT IS SYMPTOM-FREE FOR MOST OF ER STAY, AND AT DISMISSAL ON REVIEW OF CT SCAN, PT NOW STATES HE HAD A KIDNEY STONE IN THE PAST, BUT IT DID NOT HURT THIS BAD. HAS NEVER SEEN A UROLOGIST. PT REQUESTS SOMETHING FOR HIS HEMORRHOIDS ADVISES PT TO FOLLOW UP WITH [facility] FOR THIS PROBLEM AND WITH DR. SAUER FOR UROLOGY FOLLOW UP PT SENT HOME WITH MELANIE AND ADVISED TO RETURN ANY STONES TO 'S OFFICE. Comments KUB--NO ACUTE PROCESS, PENDING RADIOLOGIST REVIEW CT ABDOMEN/PELVIS--2 MM PUNCTATE STONE IN LEFT UVJ, WITH MILD LEFT HYDRONEPHROSIS--PER [facility] VIA FAX @ 0558 Reviewed: Reviewed by Me Departure Impression Primary Impression: Calculus of distal left ureter Additional Impressions: HEMORRHOID PAIN Illicit drug use Disposition: HOME, SELF-CARE Condition: Improved Departure-Patient Inst. Referrals: [facility] Patient Instructions: Hemorrhoids (DC), Kidney Stones (DC) Add. Discharge Instructions: STRAIN ALL URINE--RETURN ANY STONES TO 'S OFFICE LOTS OF CLEAR LIQUIDS--WATER, BROTH, JELLO, GATORADE FOLLOW UP WITH DR. SAUER THIS WEEK FOR FURTHER CARE FOLLOW UP WITH [facility] THIS WEEK FOR FURTHER CARE RETURN TO ER IF SYMPTOMS WORSEN All discharge instructions reviewed with patient and/or family. Voiced understanding. Scripts Hydrocortisone (Anusol-Hc) 30 Gm Cream..g. 30 GM RC TID, #1 TUBE Prov: LEXIS PLASCENCIA DO 01/02/18 Ketorolac Tromethamine (Ketorolac Tromethamine) 10 Mg Tablet 10 MG PO Q6H for Pain, #15 TAB Prov: LEXIS PLASCENCIA DO 01/02/18 Ondansetron (Zofran Odt) 4 Mg Tab.rapdis 4 MG PO Q4H for Nausea/Vomiting, #10 TAB Prov: LEXIS PLASCENCIA DO 01/02/18 Levofloxacin (Levaquin) 500 Mg Tablet 500 MG PO DAILY for INFECTION, #5 TAB Prov: LEXIS PLASCENCIA DO 01/02/18 Tamsulosin HCl (Flomax) 0.4 Mg Cap 0.4 MG PO DAILY, #10 CAP Prov: LEXIS PLASCENCIA DO 01/02/18 LEXIS PLASCENCIA DO Jan 02, 2018 00:37
[2018-01-02] MEDS ORDERED: LEVOFLOXACIN 500 MG TAB (LEVAQUIN) PO ONE (00:45)
[2018-01-02] MEDS ORDERED: KETOROLAC 30 MG/ML VIAL IVP ONE (00:45)
[2018-01-02] MEDS ORDERED: ALFUZOSIN HCL 10 MG TAB (UROXATRAL) PO SCH (00:45)
[2018-01-02 01:25] VITALS: BP 150/80
[2018-01-02 01:40] LABS: AMPHETAMINE SCREEN, URINE NEGATIVE (NEGATIVE); BARBITURATE SCREEN URINE NEGATIVE (NEGATIVE); BENZODIAZEPINES SCREEN URINE NEGATIVE (NEGATIVE); CANNABINOID SCREEN, URINE POSITIVE (NEGATIVE); COCAINE SCREEN URINE NEGATIVE (NEGATIVE); METHADONE STAT NEGATIVE (NEGATIVE); METHAMPHETAMINE SCREEN URINE S NEGATIVE (NEGATIVE); OPIATE SCREEN URINE NEGATIVE (NEGATIVE); OXYCODONE STAT NEGATIVE (NEGATIVE); PROPOXYPHENE STAT NEGATIVE (NEGATIVE); TRICYCLIC ANTIDEPRESSANTS SCRE NEGATIVE (NEGATIVE)
--- NOTE | 2018-01-02 08:07 | Diagnostic Imaging Report ---
PROCEDURE: CT urinary tract, rule out kidney stone. TECHNIQUE: Multiple contiguous axial images were obtained through the abdomen and pelvis without the use of intravenous contrast. INDICATION: Abdominal pain and constipation, left flank pain. CORRELATION STUDY: None. FINDINGS: LOWER THORAX: Clear. LIVER: Unremarkable. GALLBLADDER: Somewhat contracted but otherwise unremarkable. SPLEEN: Unremarkable. PANCREAS: Unremarkable. ADRENAL GLANDS: Unremarkable. KIDNEYS: There is approximately 2 mm punctate calculus impacted in the left vesicoureteral junction. This results in mild left-sided hydroureteronephrosis. Kidneys and collecting systems otherwise unremarkable. ABDOMINAL AORTA: Unremarkable, nonaneurysmal. GASTROINTESTINAL TRACT: Stomach is distended with significant amount of retained gastric contents. May be owing to recent meal ingestion. No evidence for small bowel obstruction. Questionable areas of asymmetric wall thickening in the mid abdomen. Colon without obstruction or inflammation. Normal appendix projects medially and inferiorly in the right lower quadrant. URINARY BLADDER: Decompressed. REPRODUCTIVE: Prostate glands and seminal vesicles unremarkable. OSSEOUS STRUCTURES: No acute abnormality. IMPRESSION: 1. Approximately 2 mm calculus appearing to be impacted in the left vesicoureteral junction. This results in mild left-sided hydroureteronephrosis. A preliminary report was provided by [facility]. Dictated by: Dictated on workstation # [id number]
--- NOTE | 2018-01-02 08:10 | Diagnostic Imaging Report ---
INDICATION: Left flank pain and abdominal pain. TIME OF EXAM: 12:20 AM FINDINGS: Heart size is normal. Lungs are clear. No free air is detected. The bowel gas pattern appears nonobstructed. Calcific densities in the left hemipelvis are noted, indeterminate between phleboliths versus potential distal ureteral calculi. No definite radiopaque renal calculi are seen. IMPRESSION: Unremarkable abdominal series apart from left pelvic calcifications, considerations above. Dictated by: Dictated on workstation # [id number]
== END 2018-01-02 01:25 | disposition home or self-care (01) ==
LOC: EDUNIT# 23:04 → ER 23:07
DX: N20.1 Calculus of ureter (principal); K64.9 Unspecified hemorrhoids; B19.20 Unspecified viral hepatitis C without hepatic coma; F32.9 Major depressive disorder, single episode, unspecified; F12.10 Cannabis abuse, uncomplicated; F15.10 Other stimulant abuse, uncomplicated; F17.210 Nicotine dependence, cigarettes, uncomplicated; Z87.442 Personal history of urinary calculi
CPT/HCPCS: 36415; 74022; 74176; 80053; 80306; 81000; 82150; 83690; 85025; 96361; 96374

== ENCOUNTER 2018-04-29 15:55 | Emergency (ER) | payer SELFPAY ==
[~2018-04-29] VITALS: Ht 170.2 cm; Wt 72.6 kg
[~2018-04-29 15:55] MED LIST changes: +HYDR30CR71 RC; +KETO10TA PO; +LEVO500T2 PO; +ONDA4TAB8 PO; +TAMS0.4C98 PO
[2018-04-29] MEDS ORDERED: NS IV 1000 ML 1,000 ML IV SCH (16:30)
--- NOTE | 2018-04-29 16:32 | ED General ---
General Stated Complaint: MURPHY/SOB Source of Information: Patient Exam Limitations: No Limitations History of Present Illness Date Seen by Provider: Apr 29, 2018 Time Seen by Provider: 16:30 Initial Comments To ER per private vehicle with reports of a 2 month history of occipital headache. Prior to 2 months ago he'd never had this before. He does have some intermittent photophobia. He denies fevers chills or cough. He also reports feeling as though he cannot take a deep breath. Also reports urinary frequency. Timing/Duration: 1-2 Days Severity: Moderate Associated Systoms: Chest Pain; No Cough; Headaches; No Loss of Appetite; Shortness of Air Allergies and Home Medications Allergies Coded Allergies: No Known Drug Allergies (Unverified , 02/15/11) Home Medications Hydrocortisone 30 Gm Cream..g., 30 GM RC TID Prescribed by: LEXIS PLASCENCIA on 01/02/1837 Ketorolac Tromethamine 10 Mg Tablet, 10 MG PO Q6H Prescribed by: LEXIS PLASCENCIA on 01/02/1836 Levofloxacin 500 Mg Tablet, 500 MG PO DAILY Prescribed by: LEXIS PLASCENCIA on 01/02/1836 Ondansetron 8 Mg Tab.rapdis, 8 MG PO Q6H PRN for NAUSEA/VOMITING-1ST LINE Prescribed by: PÉREZ NICOLAS on 09/30/171745 Ondansetron 4 Mg Tab.rapdis, 4 MG PO Q4H Prescribed by: LEXIS PLASCENCIA on 01/02/1836 Tamsulosin HCl 0.4 Mg Cap, 0.4 MG PO DAILY Prescribed by: LEXIS PLASCENCIA on 01/02/1836 Patient Home Medication List Home Medication List Reviewed: Yes Review of Systems Constitutional: see HPI; No chills EENTM: see HPI Respiratory: no symptoms reported Cardiovascular: no symptoms reported Genitourinary: no symptoms reported Musculoskeletal: no symptoms reported Skin: no symptoms reported Psychiatric/Neurological: See HPI Hematologic/Lymphatic: No Symptoms Reported Immunological/Allergic: no symptoms reported Past Nmullvc-Saqxtl-Yhvmrd Hx Patient Social History Drug of Choice: DAILY THC, +IV HEROIN AND METH, "AND EVERYTHING ELSE YOU CAN THINK OF" Type Used: Cigarettes Recent Foreign Travel: No Contact w/Someone Who Travel: No Recent Hopitalizations: No Past Medical History Surgeries: No Respiratory: No Cardiac: No Neurological: No Reproductive Disorders: No Genitourinary: Yes Kidney Stones Gastrointestinal: Yes (HEPATITIS C --NO TREATMENT) Hepatitis Musculoskeletal: No Endocrine: No HEENT: No Cancer: No Psychosocial: Yes (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 oz. 63.294769mb; BMI Method:Stated General Appearance: No Apparent Distress, WD/WN Eyes: Bilateral Eye Normal Inspection, Bilateral Eye PERRL, Bilateral Eye EOMI HEENT: PERRL/EOMI, TMs Normal Respiratory: Normal Breath Sounds, No Accessory Muscle Use, No Respiratory Distress Cardiovascular: Normal Peripheral Pulses, Tachycardia Gastrointestinal: Normal Bowel Sounds, Non Tender, Soft Extremity: Normal Capillary Refill, Normal Inspection Neurologic/Psychiatric: Alert, Oriented x3, No Motor/Sensory Deficits Skin: Normal Color, Warm/Dry Progress/Results/Core Measures Suspected Sepsis SIRS Temperature: Pulse: Respiratory Rate: Laboratory Tests 04/29/18 16:30: White Blood Count 10.0 Blood Pressure / Mean: Laboratory Tests 04/29/18 16:30: Creatinine 0.82, Platelet Count 220, Total Bilirubin 0.6 Results/Orders Lab Results Laboratory Tests Test 04/29/18 16:30 Range/Units White Blood Count 10.0 4.3-11.0 10^3/uL Red Blood Count 5.83 4.35-5.85 10^6/uL Hemoglobin 18.5 H 13.3-17.7 G/DL Hematocrit 51 40-54 % Mean Corpuscular Volume 87 80-99 FL Mean Corpuscular Hemoglobin 32 25-34 PG Mean Corpuscular Hemoglobin Concent 37 H 32-36 G/DL Red Cell Distribution Width 13.9 10.0-14.5 % Platelet Count 220 130-400 10^3/uL Mean Platelet Volume 10.0 7.4-10.4 FL Neutrophils (%) (Auto) 64 42-75 % Lymphocytes (%) (Auto) 21 12-44 % Monocytes (%) (Auto) 10 0-12 % Eosinophils (%) (Auto) 5 0-10 % Basophils (%) (Auto) 1 0-10 % Neutrophils # (Auto) 6.4 1.8-7.8 X 10^3 Lymphocytes # (Auto) 2.1 1.0-4.0 X 10^3 Monocytes # (Auto) 1.0 0.0-1.0 X 10^3 Eosinophils # (Auto) 0.5 H 0.0-0.3 10^3/uL Basophils # (Auto) 0.1 0.0-0.1 10^3/uL D-Dimer < 0.27 0.00-0.49 UG/ML Urine Color YELLOW Urine Clarity CLEAR Urine pH 6 5-9 Urine Specific [place] 1.020 1.016-1.022 Urine Protein 1+ H NEGATIVE Urine Glucose (UA) NEGATIVE NEGATIVE Urine Ketones NEGATIVE NEGATIVE Urine Nitrite NEGATIVE NEGATIVE Urine Bilirubin NEGATIVE NEGATIVE Urine Urobilinogen NORMAL NORMAL MG/DL Urine Leukocyte Esterase 1+ H NEGATIVE Urine RBC (Auto) 4+ H NEGATIVE Urine RBC 2-5 H /HPF Urine WBC NONE /HPF Urine Squamous Epithelial Cells NONE /HPF Urine Crystals NONE /LPF Urine Bacteria NEGATIVE /HPF Urine Casts NONE /LPF Urine Mucus SMALL H /LPF Urine Culture Indicated NO Sodium Level 141 135-145 MMOL/L Potassium Level 3.7 3.6-5.0 MMOL/L Chloride Level 105 98-107 MMOL/L Carbon Dioxide Level 26 21-32 MMOL/L Anion Gap 10 5-14 MMOL/L Blood Urea Nitrogen 11 7-18 MG/DL Creatinine 0.82 0.60-1.30 MG/DL Estimat Glomerular Filtration Rate > 60 BUN/Creatinine Ratio 13 Glucose Level 103 70-105 MG/DL Calcium Level 9.5 8.5-10.1 MG/DL Corrected Calcium 8.5-10.1 MG/DL Total Bilirubin 0.6 0.1-1.0 MG/DL Aspartate Amino Transf (AST/SGOT) 34 5-34 U/L Alanine Aminotransferase (ALT/SGPT) 85 H 0-55 U/L Alkaline Phosphatase 49 40-136 U/L Total Protein 8.0 6.4-8.2 GM/DL Albumin 4.9 H 3.2-4.5 GM/DL Urine Opiates Screen NEGATIVE NEGATIVE Urine Oxycodone Screen NEGATIVE NEGATIVE Urine Methadone Screen NEGATIVE NEGATIVE Urine Propoxyphene Screen NEGATIVE NEGATIVE Urine Barbiturates Screen NEGATIVE NEGATIVE Ur Tricyclic Antidepressants Screen NEGATIVE NEGATIVE Urine Phencyclidine Screen NEGATIVE NEGATIVE Urine Amphetamines Screen NEGATIVE NEGATIVE Urine Methamphetamines Screen NEGATIVE NEGATIVE Urine Benzodiazepines Screen POSITIVE H NEGATIVE Urine Cocaine Screen NEGATIVE NEGATIVE Urine Cannabinoids Screen POSITIVE H NEGATIVE My Orders Orders - VJ BRASWELL INLAYER Cbc With Automated Diff (04/29/18 16:25) Comprehensive Metabolic Panel (04/29/18 16:25) Ua Culture If Indicated (04/29/18 16:25) Drug Screen Stat (Urine) (04/29/18 16:25) Iv Heplock-Insert (Order) (04/29/18 16:25) Fibrin Degradation Products (04/29/18 16:25) Chest Pa/Lat (2 View) (04/29/18 16:25) Ns Iv 1000 Ml (Sodium Chloride 0.9%) (04/29/18 16:30) Ct Head Wo (04/29/18 16:25) Vital Signs/I&O 04/29/18 17:22 Temp 99.0 Pulse 101 Resp 16 B/P (MAP) 153/103 (120) Pulse Ox 98 O2 Delivery Room Air Capillary Refill : Departure Communication (Admissions) [id number]-discussed all of his unremarkable labs with him. He believes this is related to anxiety. He states he has a lot of "Court stuff" coming up in the next few weeks. He's had these symptoms palpitations and anxiety insomnia and headaches for about 2 months Impression Primary Impression: Anxiety Additional Impressions: Headache Palpitations Disposition: 01 HOME, SELF-CARE Condition: Stable Departure-Patient Inst. Decision time for Depature: 17:35 Referrals: [facility] [place] Primary Care Physician Patient Instructions: Palpitations Add. Discharge Instructions: 1. Follow-up with her doctor this week 2. Return to ER for any concerns. Scripts Hydroxyzine Pamoate (Vistaril) 25 Mg Capsule 25 MG PO Q4H PRN for ANXIETY, #20 CAP Prov: VJ BRASWELL INLAYER 04/29/18 VJ BRASWELL INLAYER Apr 29, 2018 16:31
[2018-04-29 16:42] LABS: BASOPHILS # (AUTO) 0.1 10^3/uL (0.0-0.1); BASOPHILS % (AUTO) 1 % (0-10); EOSINOPHILS # (AUTO) 0.5 10^3/uL (0.0-0.3); EOSINOPHILS % (AUTO) 5 % (0-10); HEMATOCRIT 51 % (40-54); HEMOGLOBIN 18.5 G/DL (13.3-17.7); LYMPHOCYTES # (AUTO) 2.1 X 10^3 (1.0-4.0); LYMPHOCYTES % (AUTO) 21 % (12-44); MEAN CORPUSCULAR HEMOGLOBIN 32 PG (25-34); MEAN CORPUSCULAR HGB CONC 37 G/DL (32-36); MEAN CORPUSCULAR VOLUME 87 FL (80-99); MONOCYTES % (AUTO) 10 % (0-12); NEUTROPHILS # (AUTO) 6.4 X 10^3 (1.8-7.8); NEUTROPHILS % (AUTO) 64 % (42-75); PLATELET COUNT 220 10^3/uL (130-400); RED BLOOD COUNT 5.83 10^6/uL (4.35-5.85); RED CELL DISTRIBUTION WIDTH 13.9 % (10.0-14.5)
[2018-04-29 16:43] LABS: BILIRUBIN,URINE NEGATIVE (NEGATIVE); CLARITY,URINE CLEAR; COLOR,URINE YELLOW; GLUCOSE, URINE (UA) NEGATIVE (NEGATIVE); KETONES,URINE NEGATIVE (NEGATIVE); LEUKOCYTE ESTERASE ,URINE 1+ (NEGATIVE); NITRITE,URINE NEGATIVE (NEGATIVE); PH,URINE 6 (5-9); PROTEIN,URINE 1+ (NEGATIVE); UROBILINOGEN,URINE NORMAL (NORMAL)
[2018-04-29 16:51] LABS: BACTERIA,URINE NEGATIVE /HPF
[2018-04-29 17:00] LABS: ALANINE AMINOTRANSFERASE 85 U/L (0-55); ALBUMIN 4.9 GM/DL (3.2-4.5); ALKALINE PHOSPHATASE 49 U/L (40-136); BILIRUBIN,TOTAL 0.6 MG/DL (0.1-1.0); BUN/CREATININE RATIO 13; CALCIUM 9.5 MG/DL (8.5-10.1); CARBON DIOXIDE 26 MMOL/L (21-32); CHLORIDE 105 MMOL/L (98-107); CREATININE SERUM 0.82 MG/DL (0.60-1.30); GFR ESTIMATED > 60; GLUCOSE 103 MG/DL (70-105); POTASSIUM 3.7 MMOL/L (3.6-5.0); SODIUM 141 MMOL/L (135-145)
--- NOTE | 2018-04-29 17:05 | Diagnostic Imaging Report ---
INDICATION: Dyspnea and tachycardia. TECHNIQUE: PA and lateral views of the chest are obtained. COMPARISON: Comparison is made to study of 01/02/2018. FINDINGS: Heart size and pulmonary vascularity are within normal limits, and the lungs are clear, bilaterally. IMPRESSION: Unremarkable chest. Dictated by: Dictated on workstation # [id number]
[2018-04-29 17:07] LABS: AMPHETAMINE SCREEN, URINE NEGATIVE (NEGATIVE); BARBITURATE SCREEN URINE NEGATIVE (NEGATIVE); BENZODIAZEPINES SCREEN URINE POSITIVE (NEGATIVE); CANNABINOID SCREEN, URINE POSITIVE (NEGATIVE); COCAINE SCREEN URINE NEGATIVE (NEGATIVE); METHADONE STAT NEGATIVE (NEGATIVE); METHAMPHETAMINE SCREEN URINE S NEGATIVE (NEGATIVE); OPIATE SCREEN URINE NEGATIVE (NEGATIVE); OXYCODONE STAT NEGATIVE (NEGATIVE); PROPOXYPHENE STAT NEGATIVE (NEGATIVE); TRICYCLIC ANTIDEPRESSANTS SCRE NEGATIVE (NEGATIVE)
--- NOTE | 2018-04-29 17:15 | Diagnostic Imaging Report ---
PROCEDURE: CT head without contrast. TECHNIQUE: Multiple contiguous axial images were obtained through the brain without the use of intravenous contrast. INDICATION: Headache. Comparison made with prior examination from 02/15/2011. FINDINGS: The ventricles and sulci are within normal limits. There is no hydrocephalus. There is no midline shift. There is no intracranial mass. There is no hemorrhage. There is no extra-axial fluid collection. Calvarium is intact. Sinuses and mastoid air cells are clear. IMPRESSION: No acute intracranial abnormality. In light of the chronicity of the findings, further evaluation with MRI may be helpful. Dictated by: Dictated on workstation # [id number]
[2018-04-29] MEDS ORDERED: HYDR25CA PO (17:35)
[2018-04-29 17:45] VITALS: BP 153/103
== END 2018-04-29 17:45 | disposition home or self-care (01) ==
LOC: EDUNIT# 15:55 → ER 15:58
DX: F41.9 Anxiety disorder, unspecified (principal); R51 Headache; R00.2 Palpitations; F12.10 Cannabis abuse, uncomplicated; F15.10 Other stimulant abuse, uncomplicated; B19.20 Unspecified viral hepatitis C without hepatic coma; F32.9 Major depressive disorder, single episode, unspecified; Z87.442 Personal history of urinary calculi; Z79.52 Long term (current) use of systemic steroids
CPT/HCPCS: 36415; 70450; 71046; 80053; 80306; 81000; 85025; 85379

== ENCOUNTER → 2018-05-17 | Outpatient (CLI) | payer SELFPAY ==
[~2018-05-17] MED LIST changes: +HYDR25CA PO
[2018-05-17] MEDS: NS 250 ML (IVPB) BAG IV ONE (14:06)
[2018-05-17] MEDS: IOHEXOL 350 MG/ML 100 ML (OMNIPAQUE 350) VIAL IV ONE (14:06)
--- NOTE | 2018-05-17 14:54 | Diagnostic Imaging Report ---
PROCEDURE: CT abdomen and pelvis with and without contrast. TECHNIQUE: Precontrast acquisitions were acquired through the abdomen and pelvis. Multiple contiguous axial images were obtained through the abdomen and pelvis after the administration of intravenous contrast. INDICATION: Microscopic hematuria. History of nephrolithiasis three months ago. CORRELATION STUDY: 01/02/2018. FINDINGS: LOWER THORAX: Clear. LIVER: Asymmetric fatty infiltration along the falciform ligament. No definitive focal lesion. GALLBLADDER: Present and unremarkable. No bile duct dilatation. SPLEEN: Unremarkable. Splenule noted inferior to the spleen. PANCREAS: Unremarkable. ADRENAL GLANDS: Unremarkable. KIDNEYS: Normal configuration. No calcification or obstruction. The previously noted left ureterovesical junction stone is not demonstrated. ABDOMINAL AORTA: Unremarkable, nonaneurysmal. A few small, non pathologically enlarged central retroperitoneal lymph nodes. GASTROINTESTINAL TRACT: Small bowel with slight fluid distention. Appendix in the right lower quadrant contains small appendicolith but without inflammatory-type changes. There are a few colonic diverticula noted about the descending and sigmoid colon. There is question of some wall thickening about the sigmoid colon with slight vascular engorgement. Possibility of underlying focal inflammation is not excluded. URINARY BLADDER: Unremarkable in appearance. No suggestion for bladder stone. REPRODUCTIVE: Prostate gland is unremarkable. OSSEOUS STRUCTURES: No acute abnormality. OTHER: None. IMPRESSION: 1. Kidneys and collecting systems have an unremarkable appearance on followup. The previously noted left ureterovesical junction stone is not demonstrated on followup. 2. Distal colonic diverticulosis. There is question of slight wall thickening and vascular engorgement of which underlying segmental colitis or perhaps low-grade diverticulitis would be difficult to exclude by imaging findings involving the sigmoid colon. Clinical correlation is recommended. Dictated by: Dictated on workstation # [id number]
== END ==
LOC: RAD 13:45
PROVIDERS: ATTEND Family Medicine
DX: K57.30 Diverticulosis of large intestine without perforation or abscess without bleeding (principal); R31.21 Asymptomatic microscopic hematuria; Z87.442 Personal history of urinary calculi
CPT/HCPCS: 74178

== ENCOUNTER → 2023-03-12 | Outpatient (CLI) | payer OTHER ==
[~2023-03-12] MED LIST changes: +RT-ALBUTEROL SULF 2.5 MG/3 ML PRE-MIX VIAL INH ONE; -TAMS0.4C98 PO; +TMSL.4C PO
== END ==
LOC: RT 10:15
PROVIDERS: ATTEND Family Medicine
DX: Z02.71 Encounter for disability determination (principal)
CPT/HCPCS: 94060